=== PATIENT | male | born 1995 | race Caucasian/White ===

== ENCOUNTER 2017-07-19 17:24 | Emergency (ER) | payer BC, OTHER ==
--- NOTE | 2017-07-19 19:29 | RAD ---
PORTABLE CHEST ONE VIEW: Date: 07-19-17 Time: 6:30 p.m. History: Chest Pain. FINDINGS: The heart size is normal. The lungs are expanded without focal areas of consolidation, pneumothorax, or pleural effusions. No acute osseous abnormality is seen. IMPRESSION: NO radiographic evidence of acute cardiopulmonary process. POS: [facility]
--- NOTE | 2017-08-17 14:59 | EKG ---
Test Reason : Blood Pressure : / mmHG Vent. Rate : 073 BPM Atrial Rate : 073 BPM P-R Int : 176 ms QRS Dur : 102 ms QT Int : 382 ms P-R-T Axes : 055 074 060 degrees QTc Int : 420 ms Normal sinus rhythm Normal ECG Reconfirmed by SHANNAN CRAVEN ([id number]), science editor DAKOTAH YU ([id number]) on 08/17/2017 2:58:54 PM Referred By: Confirmed By:SHANNAN CRAVEN
== END 2017-07-19 19:05 | disposition home or self-care (01) ==
LOC: EDBD → ERS 17:24
DX: M94.0 Chondrocostal junction syndrome [Tietze] (principal)
CPT/HCPCS: 71045; 93005

== ENCOUNTER 2017-08-17 00:51 | Inpatient (IN) | payer BC ==
[2017-08-17] MEDS ORDERED: Ondansetron HCl/PF 4 MG/2 ML Vial ONE (00:53)
[2017-08-17 01:11] LABS: #Eosinphils 0.2 thou/uL (0.0-0.7); #Lymphocytes 2.7 thou/uL (1.20-3.40); #Monocytes 0.6 thou/uL (0.11-0.59); #Neutrophils 5.2 thou/uL (1.40-6.50); %Basophils 0.5 % (0.0-1.0); %Lymphocytes 30.8 % (28.0-48.0); %Monocytes 6.3 % (0.0-4.0); %Neutrophils 60.4 % (31.0-61.0); Hemoglobin 14.8 g/dL (14.0-18.0); Mean Corpuscular HGB CONC 35.4 g/dL (32.0-36.0); Mean Corpuscular Hemoglobin 33.4 pg (25.0-35.0); Mean Corpuscular Volume 94.3 fl (77.0-87.0); Mean Platelet Volume 6.7 fL (7.4-10.4); Platelet Count 181 thou/uL (130-400); RBC Distribution Width 10.8 % (11.5-14.5); Red Blood Cell (RBC) Count 4.44 mill/uL (4.00-5.20); White Blood Cell (WBC) Count 8.7 thou/uL (4.8-10.8)
[2017-08-17 01:18] LABS: INR-International Normal Ratio 1.1; PTT 32.7 SEC (22.9-36.1); Prothrombin Time 14.7 SEC (12.0-14.7)
[2017-08-17 01:31] LABS: Alcohol 199 mg/dL (Less than 10); Anion Gap 13 mmol/L (10-20); BUN (Urea Nitrogen) 13 mg/dL (8.9-20.6); Calc. Creatinine Clearance 0 mL/min (70-130); Calcium 8.9 mg/dL (7.8-10.44); Carbon Dioxide 22 mmol/L (22-29); Chloride 105 mmol/L (98-107); Estimated GFR-MDRD Greater than 90; Glucose 108 mg/dL (70-105); Potassium 3.9 mmol/L (3.5-5.1); Sodium 136 mmol/L (136-145)
[2017-08-17] MEDS ORDERED: Adacel (T-DAP) 0.5 ML VIAL ONE (02:29)
[2017-08-17] MEDS ORDERED: Lidocaine 1% w/Epinephrine 1:100K 20 ML VIAL ONE (02:29)
[2017-08-17] MEDS ORDERED: Morphine 4 MG/ML VIAL SLOW IVP PRN (03:20)
[2017-08-17] MEDS ORDERED: Dextrose 5% in Water 1,000 ML IV PRN (03:20)
[2017-08-17] MEDS ORDERED: Dextrose 50% Abboject 50 ML SYRINGE SLOW IVP PRN (03:20)
[2017-08-17] MEDS: Sodium Chloride 0.9% 1,000 ML IV SCH ×3 (04:10→20:05)
[2017-08-17] MEDS: Acetaminophen 1,000 MG in Premix Bag 1 BAG IVPB SCH ×3 (04:10→17:04)
[2017-08-17 04:20] VITALS: BMI 21.4
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
[2017-08-17] MEDS ORDERED: Acetaminophen/Codeine 30-300mg Tablet PO PRN (07:40)
[2017-08-17] MEDS: Lorazepam 1 MG TAB PO PRN ×2 (07:49→13:15)
--- NOTE | 2017-08-17 07:54 | CT ---
CERVICAL SPINE CT NONCONTRAST: Comparison: 12-03-14 Clinical history: Post-traumatic neck injury, pain. FINDINGS: There is a fracture underlying the base of the odontoid process of C2 vertebral segment. There is ass ociated retropulsion with mild osseous compromise of the vertebral canal at the C2 level. Mild commin ution of the fracture is present. The predental space is maintained. IMPRESSION: Comminuted C2 fracture underlying the base of the dens with associated retropulsion producing mild os seous compromise of the vertebral canal. Findings conveyed to Emergency Department physician, Becca Funez, at time of dictation, 0110 hours 5-2 8-18. POS: [facility]
--- NOTE | 2017-08-17 07:57 | CT ---
CTA NECK WITH 3D VOLUME RENDERING: History: Post-traumatic neck injury. FINDINGS: There is limited evaluation of the aortic arch due to prominent streak artifact in this region. The g reat vessels that emanate from the aortic arch are also limited in visualization. There is obscuratio n of portions of the right subclavian artery due to streak artifact from contrast bolus. The left sub clavian artery is grossly patent. Evaluation of the bilateral common carotid arteries reveals no sign ificant stenosis or occlusion. There is no obvious carotid dissection identified bilaterally. The jaja ged cervical internal carotid and intracranial internal carotid arteries, bilaterally, reveal no obvi ous stenosis or occlusion. Bilateral vertebral arteries are patent. Reference separate dictation from CT cervical spine for details regarding fracture deformity of C2 segment. Incidental note of segment ation anomaly at the upper thoracic spine. IMPRESSION: No acute arterial pathology of the neck is evident. POS: [facility]
--- NOTE | 2017-08-17 07:58 | CT ---
CT OF HEAD NONCONTRASTS: Indication: Post-traumatic injury, pain. FINDINGS: There is a scalp laceration at the vertex and extending into the bilateral frontal scalp, more notabl e to the right of midline. No ventriculomegaly, mass effect, or midline shift. IMPRESSION: 1. No acute intracranial hemorrhage or mass effect. 2. Scalp injury. POS: [facility]
--- NOTE | 2017-08-17 08:08 | CT ---
CT CHEST WITH CONTRAST CT ABDOMEN AND PELVIS WITH CONTRAST CT THORACIC SPINE WITH CONTRAST CT LUMBAR SPINE WITH CONTRAST AND REFORMATTED IMAGING: Clinical history: Post-traumatic pain. Injury. FINDINGS: No evidence of a pneumothorax, pulmonary parenchymal consolidation or pleural effusion. There is mild subpleural patchy opacification of the lungs bilaterally which may be on the basis of atelectasis. T here is no definite acute post-traumatic sequella of solid abdominal viscera. Bowels incompletely ass essed without enteric contrast. Moderate distention of the urinary bladder is present. No pneumoperitoneum or significant ascites is seen. Evaluation of the thoracolumbar spine reveals mild superior endplate irregularities involving T9 and T10 vertebra, new from prior comparison exam 12-03-14. No significant subluxation. IMPRESSION: 1. Mild superior endplate irregularities of T9 and T10, new from comparison exam 12-03-14. These may r elate to acute mild superior endplate compression fractures. As necessary, this could be further asse ssed with dedicated thoracic spine MRI to evaluate for the presence of marrow edema. 2. Additional details as above. 3. Notification of findings telephoned to ER physician, Becca Funez at 0131 hours 08-17-17. POS: [facility]
[2017-08-17] MEDS: Morphine 4 MG/ML VIAL SLOW IVP PRN ×7 (08:58→23:00)
[2017-08-17] MEDS: Famotidine/PF 20 mg/2ml Vial SLOW IVP SCH ×2 (09:02→20:05)
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
[2017-08-17] MEDS ORDERED: ISOVUE-370 76%-LOCM 1 ML ONE ×2 (10:36)
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
[2017-08-17] MEDS: Ondansetron HCl/PF 4 MG/2 ML Vial IVP PRN ×2 (12:12→17:31)
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
[2017-08-17] MEDS ORDERED: HYDROcodone/Acetaminophen 5/325 mg Tablet PO PRN ×2 (17:57)
[2017-08-18] MEDS: Morphine 4 MG/ML VIAL SLOW IVP PRN ×3 (00:35→07:46)
[2017-08-18] MEDS ORDERED: Lorazepam 2 MG/ML VIAL IM SCH (02:00)
[2017-08-18] MEDS ORDERED: Lorazepam 2 MG/ML VIAL SLOW IVP SCH (02:15)
[2017-08-18] MEDS: Metoclopramide HCl 10 MG/2 ML VIAL IVP SCH ×3 (05:58→17:27)
[2017-08-18 05:59] LABS: Anion Gap 10 mmol/L (10-20); BUN (Urea Nitrogen) 9 mg/dL (8.9-20.6); Calc. Creatinine Clearance 142 mL/min (70-130); Calcium 8.6 mg/dL (7.8-10.44); Carbon Dioxide 28 mmol/L (22-29); Chloride 102 mmol/L (98-107); Estimated GFR-MDRD Greater than 90; Glucose 101 mg/dL (70-105); Potassium 4.1 mmol/L (3.5-5.1); Sodium 136 mmol/L (136-145)
[2017-08-18] MEDS: Sodium Chloride 0.9% 1,000 ML IV SCH ×3 (05:59→20:48)
[2017-08-18 06:29] LABS: #Lymphocytes 1.1 thou/uL (1.20-3.40); #Monocytes 0.8 thou/uL (0.11-0.59); #Neutrophils 4.9 thou/uL (1.40-6.50); %Basophils 0.2 % (0.0-1.0); %Eosinophils 0.4 % (0.0-10.0); %Monocytes 11.6 % (0.0-4.0); %Neutrophils 71.8 % (31.0-61.0); Hemoglobin 13.5 g/dL (14.0-18.0); Mean Corpuscular HGB CONC 35.1 g/dL (32.0-36.0); Mean Corpuscular Hemoglobin 33.8 pg (25.0-35.0); Mean Corpuscular Volume 96.4 fl (77.0-87.0); Mean Platelet Volume 7.1 fL (7.4-10.4); Platelet Count 121 thou/uL (130-400); RBC Distribution Width 10.7 % (11.5-14.5); White Blood Cell (WBC) Count 6.8 thou/uL (4.8-10.8)
[2017-08-18] MEDS: Enoxaparin Sodium 40 MG/0.4 ML SYRINGE SC SCH (09:04)
[2017-08-18] MEDS: Famotidine/PF 20 mg/2ml Vial SLOW IVP SCH (09:04)
[2017-08-18] MEDS: Scopolamine 1.5 mg/72 hour Patch TD SCH (11:54)
[2017-08-18] MEDS ORDERED: Acetaminophen 1,000 MG in Premix Bag 1 BAG IVPB SCH (12:00)
[2017-08-18] MEDS: Ibuprofen 800 MG TAB PO SCH ×2 (14:09→20:47)
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
[2017-08-18] MEDS: traMADol HCl 50 MG TAB PO PRN ×2 (17:00→17:45)
[2017-08-18] MEDS: Acetaminophen 325 MG TAB PO SCH ×2 (17:27→20:46)
[2017-08-18] MEDS: Gabapentin 300 MG CAP PO SCH (20:47)
[2017-08-18] MEDS: Famotidine 20 MG TAB PO SCH (20:47)
[2017-08-19] MEDS: Acetaminophen 325 MG TAB PO SCH ×6 (00:54→20:00)
[2017-08-19] MEDS: Metoclopramide HCl 10 MG/2 ML VIAL IVP SCH ×4 (00:56→18:23)
[2017-08-19] MEDS: Cyclobenzaprine 10 MG TAB PO PRN ×3 (00:56→22:44)
[2017-08-19] MEDS: traMADol HCl 50 MG TAB PO PRN ×3 (00:56→18:23)
[2017-08-19] MEDS: Ibuprofen 800 MG TAB PO SCH ×3 (05:17→22:43)
[2017-08-19] MEDS: Sodium Chloride 0.9% 1,000 ML IV SCH ×2 (05:42→17:37)
[2017-08-19] MEDS: Senokot S 8.6-50 MG TAB PO SCH ×2 (09:52→20:00)
[2017-08-19] MEDS: Famotidine 20 MG TAB PO SCH ×2 (09:52→19:59)
[2017-08-19] MEDS: Enoxaparin Sodium 40 MG/0.4 ML SYRINGE SC SCH (09:53)
[2017-08-19] MEDS: Polyethylene Glycol 3350 17 GM Packet PO SCH (09:59)
[2017-08-19] MEDS: Gabapentin 300 MG CAP PO SCH (10:00)
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
[2017-08-19] MEDS ORDERED: Sodium Chloride 0.65% Nasal 44 ML BOT EA NARE PRN (21:16)
[2017-08-19] MEDS: Pregabalin 25 MG CAP PO SCH (22:43)
[2017-08-20] MEDS: traMADol HCl 50 MG TAB PO PRN ×3 (00:34→17:02)
[2017-08-20] MEDS: Acetaminophen 325 MG TAB PO SCH ×6 (00:34→21:09)
[2017-08-20] MEDS: Metoclopramide HCl 10 MG/2 ML VIAL IVP SCH ×4 (00:35→18:21)
[2017-08-20 06:02] LABS: #Eosinphils 0.2 thou/uL (0.0-0.7); #Lymphocytes 1.6 thou/uL (1.20-3.40); #Monocytes 0.6 thou/uL (0.11-0.59); %Basophils 0.4 % (0.0-1.0); %Eosinophils 4.4 % (0.0-10.0); %Lymphocytes 29.2 % (28.0-48.0); %Monocytes 11.5 % (0.0-4.0); %Neutrophils 54.4 % (31.0-61.0); Hemoglobin 13.4 g/dL (14.0-18.0); Mean Corpuscular HGB CONC 35.4 g/dL (32.0-36.0); Mean Corpuscular Hemoglobin 33.1 pg (25.0-35.0); Mean Corpuscular Volume 93.6 fl (77.0-87.0); Mean Platelet Volume 6.3 fL (7.4-10.4); Platelet Count 139 thou/uL (130-400); RBC Distribution Width 10.6 % (11.5-14.5); Red Blood Cell (RBC) Count 4.05 mill/uL (4.00-5.20); White Blood Cell (WBC) Count 5.5 thou/uL (4.8-10.8)
[2017-08-20 06:14] LABS: Anion Gap 7 mmol/L (10-20); BUN (Urea Nitrogen) 13 mg/dL (8.9-20.6); Calc. Creatinine Clearance 140 mL/min (70-130); Calcium 9.2 mg/dL (7.8-10.44); Carbon Dioxide 36 mmol/L (22-29); Chloride 99 mmol/L (98-107); Estimated GFR-MDRD Greater than 90; Glucose 93 mg/dL (70-105); Magnesium 1.8 mg/dL (1.7-2.2); Phosphorus 3.8 mg/dL (2.3-4.7); Potassium 3.6 mmol/L (3.5-5.1); Sodium 138 mmol/L (136-145)
[2017-08-20] MEDS: Ibuprofen 800 MG TAB PO SCH ×3 (06:54→21:11)
[2017-08-20] MEDS: Polyethylene Glycol 3350 17 GM Packet PO SCH (08:47)
[2017-08-20] MEDS: Senokot S 8.6-50 MG TAB PO SCH ×2 (08:47→21:11)
[2017-08-20] MEDS: Famotidine 20 MG TAB PO SCH ×2 (08:47→21:09)
[2017-08-20] MEDS: Enoxaparin Sodium 40 MG/0.4 ML SYRINGE SC SCH (08:47)
[2017-08-20] MEDS: Pregabalin 25 MG CAP PO SCH ×2 (08:55→21:09)
[2017-08-20] MEDS: Bisacodyl 10 MG SUPP PR SCH (09:11)
[2017-08-20] MEDS: Cyclobenzaprine 10 MG TAB PO PRN (12:19)
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
[2017-08-21] MEDS: Metoclopramide HCl 10 MG/2 ML VIAL IVP SCH ×4 (01:00→18:44)
[2017-08-21] MEDS: Acetaminophen 325 MG TAB PO SCH ×6 (01:08→21:16)
[2017-08-21] MEDS: traMADol HCl 50 MG TAB PO PRN (03:38)
[2017-08-21] MEDS: Ibuprofen 800 MG TAB PO SCH ×3 (05:56→21:15)
[2017-08-21] MEDS: Polyethylene Glycol 3350 17 GM Packet PO SCH (09:10)
[2017-08-21] MEDS: Enoxaparin Sodium 40 MG/0.4 ML SYRINGE SC SCH (09:10)
[2017-08-21] MEDS: Senokot S 8.6-50 MG TAB PO SCH ×2 (09:11→21:16)
[2017-08-21] MEDS: Famotidine 20 MG TAB PO SCH ×2 (09:11→21:17)
[2017-08-21] MEDS: Bisacodyl 10 MG SUPP PR SCH (09:11)
[2017-08-21] MEDS: Pregabalin 25 MG CAP PO SCH ×2 (09:17→21:15)
[2017-08-21] MEDS ORDERED: Melatonin 3 MG TAB PO PRN (10:22)
[2017-08-21] MEDS ORDERED: Fleet Enema 133 ML BOT PR SCH (10:30)
[2017-08-21] MEDS ORDERED: Magnesium Citrate 300 ML BOT PO SCH (10:30)
[2017-08-21] MEDS: Scopolamine 1.5 mg/72 hour Patch TD SCH (11:54)
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
[2017-08-22] MEDS: Metoclopramide HCl 10 MG/2 ML VIAL IVP SCH ×3 (00:32→05:20)
[2017-08-22] MEDS: Acetaminophen 325 MG TAB PO SCH ×7 (01:27→21:19)
[2017-08-22] MEDS ORDERED: diphenhydrAMINE 25 MG CAP PO SCH (02:30)
[2017-08-22] MEDS: traMADol HCl 50 MG TAB PO PRN ×2 (05:00→11:24)
[2017-08-22] MEDS: Ibuprofen 800 MG TAB PO SCH ×3 (05:01→21:19)
[2017-08-22] MEDS: Famotidine 20 MG TAB PO SCH ×2 (10:13→21:19)
[2017-08-22] MEDS: Enoxaparin Sodium 40 MG/0.4 ML SYRINGE SC SCH (10:14)
[2017-08-22] MEDS: Senokot S 8.6-50 MG TAB PO SCH ×2 (10:14→21:19)
[2017-08-22] MEDS: Polyethylene Glycol 3350 17 GM Packet PO SCH (10:15)
[2017-08-22] MEDS: Pregabalin 25 MG CAP PO SCH ×2 (11:25→21:19)
[2017-08-22] MEDS ORDERED: Melatonin 3 MG TAB PO PRN (11:50)
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
[2017-08-22] MEDS ORDERED: Simethicone Chewable 80 MG TAB PO PRN (15:48)
[2017-08-22] MEDS: diphenhydrAMINE 50 MG CAP PO PRN (21:25)
[2017-08-23] MEDS: Acetaminophen 325 MG TAB PO SCH ×6 (00:49→22:41)
[2017-08-23] MEDS: Cyclobenzaprine 10 MG TAB PO PRN ×2 (00:53→22:44)
[2017-08-23] MEDS: Ibuprofen 800 MG TAB PO SCH ×3 (05:54→22:40)
[2017-08-23] MEDS ORDERED: Magnesium Citrate 300 ML BOT PO SCH (08:30)
[2017-08-23] MEDS: Senokot S 8.6-50 MG TAB PO SCH ×2 (09:02→22:41)
[2017-08-23] MEDS: Enoxaparin Sodium 40 MG/0.4 ML SYRINGE SC SCH (09:02)
[2017-08-23] MEDS: Famotidine 20 MG TAB PO SCH ×2 (09:02→22:41)
[2017-08-23] MEDS: Pregabalin 25 MG CAP PO SCH ×2 (10:55→22:47)
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
[2017-08-23] MEDS: diphenhydrAMINE 50 MG CAP PO PRN (22:42)
[2017-08-24] MEDS: Acetaminophen 325 MG TAB PO SCH ×4 (02:08→15:05)
[2017-08-24] MEDS: Ibuprofen 800 MG TAB PO SCH ×2 (05:28→15:05)
[2017-08-24] MEDS: Enoxaparin Sodium 40 MG/0.4 ML SYRINGE SC SCH (09:30)
[2017-08-24] MEDS: Pregabalin 25 MG CAP PO SCH (09:30)
[2017-08-24] MEDS: Senokot S 8.6-50 MG TAB PO SCH (09:31)
[2017-08-24] MEDS: Famotidine 20 MG TAB PO SCH (09:31)
[2017-08-24] MEDS: Scopolamine 1.5 mg/72 hour Patch TD SCH (09:31)
[2017-08-24 15:35] VITALS: BP 116/75; TEMP 98.3
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
== END 2017-08-24 15:45 | DRG 52 ==
LOC: EDBD 00:51 → ERS 00:51 → CCU 02:45 → SJJU 08-19 15:53
PROVIDERS: ADMIT Surgery; ATTEND Surgery
DX: S14.122A Central cord syndrome at C2 level of cervical spinal cord, initial encounter (principal); S22.070A Wedge compression fracture of T9-T10 vertebra, initial encounter for closed fracture; G81.94 Hemiplegia, unspecified affecting left nondominant side; S12.110A Anterior displaced Type II dens fracture, initial encounter for closed fracture; W16.42XA Fall into unspecified water causing other injury, initial encounter; Y93.89 Activity, other specified; Y92.89 Other specified places as the place of occurrence of the external cause; S01.01XA Laceration without foreign body of scalp, initial encounter; F10.129 Alcohol abuse with intoxication, unspecified; G89.11 Acute pain due to trauma; R33.9 Retention of urine, unspecified; F44.4 Conversion disorder with motor symptom or deficit
CPT/HCPCS: 12005; 36415; 51702; 70450; 70498; 71260; 72125; 72141; 74177; 80048; 80307; 83735; 84100; 85025; 85610; 85730; 86850; 86900; 86901; 90471; 90715; 96374; G0390; G8978-GP-CN; G8979-GP-CM; G8987-GO-CN; G8988-GO-CM; J0131; J1650; J2001; J2060; J2270; J2405; J2765; S0028

== ENCOUNTER 2017-09-17 09:12 | Outpatient (CLI) | payer BC ==
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
== END 2017-09-17 09:13 | disposition home or self-care (01) ==
LOC: TBSIIMAG 09:12
PROVIDERS: ATTEND Neurological Surgery
DX: S12.110A Anterior displaced Type II dens fracture, initial encounter for closed fracture (principal)
CPT/HCPCS: 72125

== ENCOUNTER 2017-10-22 10:15 | Outpatient (CLI) | payer BC ==
--- NOTE | 2017-10-22 11:43 | CT ---
CT CERVICAL SPINE: 10/22/2017 PROVIDED CLINICAL HISTORY: Follow up fracture. COMPARISON: CT examination dated 09/17/2017. FINDINGS: Minimally displaced type 3 odontoid fracture is redemonstrated. There is persistent fracture lucency . There is no significant bridging callus formation evident. Alignment appears unchanged. No addit ional fracture is evident. Vertebral body heights appear maintained. No prevertebral soft tissue sw elling. The visualized lung apices appear clear. No lytic or blastic lesions are seen. There is a stable focus of ossification, measuring about 12 mm, at the cranial margin of the lateral mass of the C1 ring, right of midline. This was present on comparison examinations dating back to 12/03/2014 an d may be congenital in nature. This is immediately adjacent to the expected course of the right vert ebral artery. IMPRESSION: No significant interval change with ununited, minimally displaced type 3 odontoid fracture redemonstr ated. POS: [facility]
== END 2017-10-22 10:16 | disposition home or self-care (01) ==
LOC: TBSIIMAG 10:15
PROVIDERS: ATTEND Neurological Surgery
DX: S12.9XXA Fracture of neck, unspecified, initial encounter (principal); S12.110A Anterior displaced Type II dens fracture, initial encounter for closed fracture
CPT/HCPCS: 72125

== ENCOUNTER 2017-12-03 10:15 | Outpatient (CLI) | payer BC ==
--- NOTE | 2017-12-03 11:20 | RAD ---
CERVICAL SPINE THREE VIEWS: HISTORY: Nondisplaced fracture of the C2 vertebral body. COMPARISON: None. CORRELATION: CT cervical spine from 10/22/2017. FINDINGS: Limited evaluation of the second vertebral body on the open-mouth projection. The predental space is normal. There is a minimally displaced fracture involving the odontoid proces s, best demonstrated on the lateral projection. There may still be a fracture lucency suggesting inc omplete healing. The remaining cervical vertebral bodies have preservation of vertebral body height. No prevertebral soft tissue swelling. IMPRESSION: Minimally displaced C2 vertebral body fracture. When comparing to the recent CT, no significant crump ge. Lucency suggesting incomplete healing is noted. POS: [facility]
== END 2017-12-03 10:16 | disposition home or self-care (01) ==
LOC: TBSIIMAG 10:15
PROVIDERS: ATTEND Neurological Surgery
DX: S12.100A Unspecified displaced fracture of second cervical vertebra, initial encounter for closed fracture (principal)
CPT/HCPCS: 72040

== ENCOUNTER 2018-01-23 22:05 | Emergency (ER) | payer BC ==
[2018-01-23 22:41] LABS: Bilirubin Negative (Negative); Blood, Urine Negative (Negative); Clarity CLEAR (Clear); Glucose, Urine (Dipstick) Negative (Negative); Leukocyte Negative (Negative); Nitrite Negative (Negative); Protein, Urine (Dipstick) Negative (Neg-Trace); Specific Gravity, Urine 1.012 (1.002-1.036); pH, Urine 6.5 (5.0-9.0)
--- NOTE | 2018-01-23 23:10 | ULT ---
TESTICULAR ULTRASOUND: 01/23/18 HISTORY: Left testicular pain for three days. Multiple longitudinal and transverse images of the scrotum is obtained using a multihertz linear arr ay transducer. Real time, color flow and spectral waveform doppler analysis used to evaluate the test icles. The right and left testicles are of normal contour, axis and size. The right testicle measures 4.8 x 2.2 x 2.4 cm while the left testicle measures 5.0 x 2.2 x 2.7 cm. G ood blood flow is seen in both testicles. No evidence of testicular masses or torsion seen. The righ t and left epididymi are unremarkable. No significant epididymal enlargement is seen. No definite grayson dence of epididymitis seen. Tiny bilateral hydroceles seen. No evidence of varicocele seen. IMPRESSION: Normal testicular ultrasound. POS: [facility]
[2018-01-24 19:43] LABS: Chlamydia by PCR Not Detected (NotDetected); GC by PCR Not Detected (NotDetected)
== END 2018-01-24 00:12 | disposition home or self-care (01) ==
LOC: ERS 22:05 → EEVIPCON 22:05 → ERS 01-24 00:12
DX: M25.512 Pain in left shoulder (principal)
CPT/HCPCS: 76870; 81003; 87491; 87591; 93976

== ENCOUNTER 2022-06-24 18:03 | Emergency (ER) | payer BC ==
[~2022-06-24 18:03] MED LIST: Magnevist 469MG/ML 20 ML VIAL ONE
[2022-06-24] MEDS ORDERED: Metoclopramide HCl 10 MG/2 ML VIAL ONE (18:52)
[2022-06-24] MEDS ORDERED: diphenhydrAMINE 50 MG/ML VIAL ONE (18:52)
[2022-06-24 19:14] LABS: #Eosinphils 0.1 thou/uL (0.0-0.7); #Lymphocytes 2.1 thou/uL (1.20-3.40); #Monocytes 0.5 thou/uL (0.11-0.59); #Neutrophils 4.8 thou/uL (1.40-6.50); %Basophils 0.3 % (0.0-1.0); %Lymphocytes 28.1 % (21.0-51.0); %Monocytes 6.8 % (0.0-10.0); %Neutrophils 63.9 % (42.0-75.0); Mean Corpuscular HGB CONC 33.2 g/dL (32.0-36.0); Mean Corpuscular Volume 96.4 fl (78.0-98.0); Mean Platelet Volume 7.1 fL (7.4-10.4); Platelet Count 212 10x3/uL (130-400); RBC Distribution Width 11.2 % (11.5-14.5); Red Blood Cell (RBC) Count 4.99 mill/uL (4.70-6.10); White Blood Cell (WBC) Count 7.5 10x3/uL (4.8-10.8)
[2022-06-24] MEDS ORDERED: Tamsulosin HCl 0.4 MG CAP PO SCH (19:30)
[2022-06-24 19:34] LABS: Acetaminophen Less than 10.0 mcg/mL (10.0-30.0); Alcohol Less than 10 mg/dL (Less than 10); Salicylate Less than 8.0 mg/dL (15.0-30.0)
[2022-06-24 19:35] LABS: ALT (SGPT) 18 U/L (8-55); AST (SGOT) 10 U/L (5-34); Albumin 4.5 g/dL (3.5-5.0); Alkaline Phosphatase 78 U/L (40-110); Anion Gap 13 mmol/L (10-20); BUN (Urea Nitrogen) 14 mg/dL (8.9-20.6); Bilirubin, Total 0.6 mg/dL (0.2-1.2); CK (CPK) 29 U/L (30-200); Calc. Creatinine Clearance 0 mL/min (70-130); Calcium 9.7 mg/dL (7.8-10.44); Carbon Dioxide 29 mmol/L (22-29); Chloride 103 mmol/L (98-107); Estimated GFR 110; Globulin 3.1 g/dL (2.4-3.5); Glucose 99 mg/dL (70-105); Protein, Total 7.6 g/dL (6.0-8.3); Sodium 141 mmol/L (136-145)
[2022-06-24 21:00] LABS: Bilirubin Negative (Negative); Blood, Urine Negative (Negative); Clarity Clear (Clear); Glucose, Urine (Dipstick) Normal (Negative); Ketone, Urine Negative (Negative); Leukocyte Negative Leu/uL (Negative); Nitrite Negative (Negative); Protein, Urine (Dipstick) Negative (Neg-Trace); Specific Gravity, Urine 1.011 (1.002-1.036); Urobilinogen Normal mg/dL (Less than 2)
[2022-06-24 21:09] LABS: Amphetamine Not Detected (NotDetected); Barbiturates Screen Not Detected (NotDetected); Benzodiazepine Screen Not Detected (NotDetected); Cocaine Metabolite Screen Not Detected (NotDetected); Methadone Not Detected (NotDetected); Methamphetamine Not Detected (NotDetected); Opiate Screen Not Detected (NotDetected); Oxycodone Screen Not Detected (NotDetected); Phencyclidine (PCP) Not Detected (NotDetected); THC/Cannabinoid Screen Not Detected (NotDetected); Tricyclic Screen Not Detected (NotDetected)
== END 2022-06-24 23:51 | disposition home or self-care (01) ==
LOC: ERS 18:03
DX: R45.851 Suicidal ideations (principal); R51.9 Headache, unspecified; G89.29 Other chronic pain
CPT/HCPCS: 36415; 70553; 80053; 80306; 80307; 81003; 82550; 84443; 85025; 96365; 96366; 96375; A9579; J1200; J2765